=== PATIENT | female | born 1985 | race Caucasian/White ===

== ENCOUNTER 2022-12-29 11:31 | Emergency (ER) | payer BC ==
[~2022-12-29] VITALS: Ht 177.8 cm; Wt 61.2 kg
[~2022-12-29 11:31] MED LIST: KEFLEX500 MG PO; PRENATAL1 TA3 PO; TRI-SPRINTEC1 TAB PO
== END 2022-12-29 13:11 | disposition home or self-care (01) ==
LOC: ED 11:31
DX: J02.9 Acute pharyngitis, unspecified (principal); Z98.890 Other specified postprocedural states